=== PATIENT | female | born 1990 | race Caucasian/White ===

== ENCOUNTER 2017-01-15 12:35 | Emergency (ER) | payer OTHER ==
[~2017-01-15] VITALS: Ht 162.6 cm; Wt 74.8 kg
[~2017-01-15 12:35] MED LIST: PROAIR HFA8.5 GM INH
[2017-01-15 14:02] LABS: ABSOLUTE BASOPHIL COUNT 0.1 /CUMM (0.0-0.2); ABSOLUTE EOSINOPHIL COUNT 0 /CUMM (0.0-0.7); ABSOLUTE LYMPH COUNT 2.1 /CUMM (1.2-3.4); ABSOLUTE MONOCYTE COUNT 0.6 /CUMM (0.10-0.60); BASOPHIL % 0.8 % (0.0-2.0); EOSINOPHIL % 0.4 % (0-5); GRANULOCYTE % 73.9 % (42.2-75.2); HEMATOCRIT 38.7 % (37-47); MEAN CORPUSCULAR HGB CONC 34.8 G/DL (33.0-37.0); MEAN CORPUSCULAR VOLUME 89.2 FL (81.0-99.0); MEAN PLATELET VOLUME 9.9 FL (7.4-10.4); PLATELET COUNT 186 /CUMM (130-400); RBC DISTRIBUTION WIDTH 12.8 % (11.5-14.5); RED BLOOD CELL CT 4.34 /CUMM (4.20-5.40); WHITE BLOOD CELL COUNT 10.9 /CUMM (4.8-10.8)
--- NOTE | 2017-01-15 14:41 | ED EAR COMPLAINT ---
History of Present Illness General Chief Complaint: Ear Complaints Stated Complaint: RIGHT EAR PAIN Source: patient Exam Limitations: no limitations Vital Signs & Intake/Output Vital Signs & Intake/Output Vital Signs Date Time Temp Pulse Resp B/P B/P Pulse O2 O2 Flow FiO2 Mean Ox Delivery Rate 01/15 1621 63 18 148/85 98 Room Air 01/15 1335 99 Room Air 01/15 1239 98.8 81 16 160/98 99 Room Air Allergies Coded Allergies: NO KNOWN ALLERGIES (10/19/11) Reconcile Medications Albuterol Sulfate (Proair Hfa) 8.5 GM HFA.AER.AD 2 PUF INH Q4-6 PRN PRN DYSPNEA (Reported) Amoxicillin 500 MG TABLET 1 TAB PO TID cellulitis Ciprofloxacin HCl/Dexameth (Ciprodex Otic Suspension) 0.3 %-0.1 % DROPS.SUSP 4 GTT OT BID otitis media Sulfamethoxazole/Trimethoprim (Bactrim Ds Tablet) 800 MG-160 MG TABLET 1 TAB PO BID cellulitis Triage Note: 26 Y/O FEMALE SENT BY [facility] FOR EVAL OF R EAR PAIN/SWELLING. 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 PMD WORRIED ABOUT MASTOIDITIS. R EAR RED AND SWOLLEN, WARM TO TOUCH Triage Nurses Notes Reviewed? yes Onset: Abrupt Duration: day(s):, constant, getting worse Timing: recent history Injury Environment: home Severity: moderate, severe No Modifying Factors: none : No Patient currently breastfeeds: No HPI: 26-year-old female comes into emergency room with complaints of right ear pain and swelling. Symptoms of a going on for the past few days. Getting progressively worse. Denies any vomiting. Sharp pain. denies any trauma. Past History Travel History Traveled to [place] past 21 day No Medical History Any Pertinent Medical History? 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 No Review of Systems Review of Systems Constitutional: Reports: no symptoms. EENTM: Reports: see HPI. Respiratory: Reports: no symptoms. Cardiovascular: Reports: no symptoms. GI: Reports: no symptoms. Genitourinary: Reports: no symptoms. Musculoskeletal: Reports: no symptoms. Skin: Reports: no symptoms. Neurological/Psychological: Reports: no symptoms. Hematologic/Endocrine: Reports: no symptoms. Immunologic/Allergic: Reports: no symptoms. All Other Systems: Reviewed and Negative Physical Exam Physical Exam General Appearance: well developed/nourished, mild distress Head: atraumatic Eyes: Bilateral: normal appearance. Ears: Right: other (erythema, warmth, swelling). Nose: normal inspection Mouth/Throat: normal mouth inspection, pharynx normal Neck: normal inspection Cardiovascular/Respiratory: no respiratory distress Back: normal inspection Neurologic/Psych: awake, alert, oriented x 3, normal mood/affect Skin: intact, normal color, warm/dry Progress Differential Diagnoses I considered the following diagnoses in my evaluation of the patient: Cellulitis, mastoiditis, otitis media, otitis externa, Plan of Care: Orders Procedure Date/time Status URINE 01/15 1318 Complete CBC WITHOUT DIFFERENTIAL 01/16 1316 Complete BASIC METABOLIC PANEL 01/16 1316 Complete Laboratory Tests 01/15/17 1440: Urine Test NEGATIVE 01/15/17 1344: Anion Gap 11, Estimated GFR > 60, BUN/Creatinine Ratio 15.7, Glucose 87, Calcium 9.0, CBC w Diff NO MAN DIFF REQ, RBC 4.34, MCV 89.2, MCH 31.0, RDW 12.8, MPV 9.9 , Gran % 73.9, Lymphocytes % 19.8 L, Monocytes % 5.1, Eosinophils % 0.4, Basophils % 0.8, Absolute Granulocytes 8.0 H, Absolute Lymphocytes 2.1, Absolute Monocytes 0.6, Absolute Eosinophils 0, Absolute Basophils 0.1, PUBS MCHC 34.8 Diagnostic Imaging: Viewed by Me: CT Scan. Discussed w/RAD: CT Scan. Radiology Impression: SERVICE DATE: 01/15/17 EXAM TYPE: CAT - CT INT AUD CANALS WO IV CONT EXAMINATION: CT INTERNAL AUDITORY CANALS WITHOUT CONTRAST CLINICAL INFORMATION: Pain and swelling to rule out mastoiditis. COMPARISON: None available. TECHNIQUE: Contiguous axial imaging was performed without intravenous administration of contrast. FINDINGS: There is soft tissue thickening involving the cartilaginous right EAC and the right auricle suggesting right-sided otitis externa with probable adjacent cellulitis. Possible partially imaged enlarged lymph nodes just beneath the right mastoid tip and within the right parotid gland. The mastoid air cells and middle ear cavities are clear bilaterally. The inner ear structures including the cochlea, vestibules, and semicircular canals are normal. The semicircular canals remain will cover with bone. Fascicular chains are intact bilaterally. There is no otospongiosis. Facial nerves describe a normal course bilaterally. The petrous apices are pneumatized and remain well aerated bilaterally. The oval window and round window niches remain well-aerated. The vestibular aqueducts are not enlarged. The internal carotid arteries remain well covered with bone and the sigmoid plates are intact. There is mild mucosal thickening along the floors of the right and left maxillary sinus. Partially imaged significant periapical disease involving the left maxillary premolars, the right first maxillary molar, and the left first and second maxillary molars. Thin bone covers the left maxillary sinus floor at the level of periapical disease without definite dehiscence. There is leftward deviation of the nasal septum with a leftward directed septal spur. Adenoid hypertrophy results in nasopharyngeal narrowing. IMPRESSION: - There is soft tissue thickening involving the cartilaginous right EAC and the right auricle suggesting right-sided otitis externa with probable adjacent cellulitis. Possible partially imaged enlarged lymph nodes just beneath the right mastoid tip and within the right parotid gland. Following conservative treatment, a neck CT with contrast would be recommended to ensure resolution of these findings. - The mastoid air cells and middle ear cavities are clear. - Partially imaged significant periapical disease involving the left maxillary premolars, the right first maxillary molar, and the left first and second maxillary molars. Thin bone covers the left maxillary sinus floor at the level of periapical disease without definite dehiscence. DICTATED BY: LYLA CROWE MD DATE/TIME DICTATED:01/15/171601 RIDDLER OPERATOR:ALMA ROSA DATE/TIME TRANSCRIBED:01/15/171601 Initial ED EKG: none Departure Departure Disposition: HOME OR SELF CARE Condition: Stable Clinical Impression Primary Impression: Cellulitis of ear Referrals: TOMAS JIANG MD (PCP/Family) Additional Instructions: Take amoxicillin Bactrim and Ciprodex drops as prescribed. Follow-up with ear nose and throat doctor. Return if any concerns worsening symptoms. Please go over all results of today's visit with your primary care doctor. Contact your primary care doctor to let them know you were here in the emergency room. There may be nonspecific findings which may not be related to your visit today here in the emergency room but may require further evaluation and chronic monitoring by your primary care doctor. If you had a laceration today the chance of foreign body always remains. You should follow-up with your primary care doctor for recheck in 3-5 days for a wound check. If you had an x-ray done there is a chance that a fracture could have been missed on initial read and you should follow-up with your primary care doctor for repeat x-rays if symptoms persist. If your blood pressure was elevated here in the emergency room please have rechecked by her primary care doctor within the next 48 hours by your primary care doctor. If you were prescribed a narcotic here in the emergency room or any type of controlled substances you're not allowed to drive while taking this medication or operate any type of heavy machinery. Narcotics can make you feel lightheaded dizziness nausea and can cause constipation. You may need to pick and shovel worker a stool softener. Thank you for choosing [facility] emergency room. Please return to the emergency room immediately if you have any other concerns worsening of symptoms. Departure Forms: Customer Survey General Discharge Information Prescriptions: Current Visit Scripts Sulfamethoxazole/Trimethoprim (Bactrim Ds Tablet) 1 TAB PO BID #20 TAB Amoxicillin 1 TAB PO TID #30 TAB Ciprofloxacin HCl/Dexameth (Ciprodex Otic Suspension) 4 GTT OT BID #1 BOT Comments 01/15/2017 4:47:37 PM No evidence of mastoiditis. External auditory canal slightly inflamed. Patient be treated with ear drops as well as oral antibiotics for cellulitis of auricle. Patient understands and agrees with plan of care. Follow-up for recheck in 4-5 days with primary care doctor.
[2017-01-15] MEDS ORDERED: CIPRODEX OTIC7.5 ML OT (16:08)
[2017-01-15] MEDS ORDERED: BACTRIM DS TAB1 EACH PO (16:08)
[2017-01-15] MEDS ORDERED: AMOXICILLIN500 M3 PO (16:08)
--- NOTE | 2017-01-15 16:18 | CT SCAN REPORT ---
EXAMINATION: CT INTERNAL AUDITORY CANALS WITHOUT CONTRAST CLINICAL INFORMATION: Pain and swelling to rule out mastoiditis. COMPARISON: None available. TECHNIQUE: Contiguous axial imaging was performed without intravenous administration of contrast. FINDINGS: There is soft tissue thickening involving the cartilaginous right EAC and the right auricle suggesting right-sided otitis externa with probable adjacent cellulitis. Possible partially imaged enlarged lymph nodes just beneath the right mastoid tip and within the right parotid gland. The mastoid air cells and middle ear cavities are clear bilaterally. The inner ear structures including the cochlea, vestibules, and semicircular canals are normal. The semicircular canals remain will cover with bone. Fascicular chains are intact bilaterally. There is no otospongiosis. Facial nerves describe a normal course bilaterally. The petrous apices are pneumatized and remain well aerated bilaterally. The oval window and round window niches remain well-aerated. The vestibular aqueducts are not enlarged. The internal carotid arteries remain well covered with bone and the sigmoid plates are intact. There is mild mucosal thickening along the floors of the right and left maxillary sinus. Partially imaged significant periapical disease involving the left maxillary premolars, the right first maxillary molar, and the left first and second maxillary molars. Thin bone covers the left maxillary sinus floor at the level of periapical disease without definite dehiscence. There is leftward deviation of the nasal septum with a leftward directed septal spur. Adenoid hypertrophy results in nasopharyngeal narrowing. IMPRESSION: - There is soft tissue thickening involving the cartilaginous right EAC and the right auricle suggesting right-sided otitis externa with probable adjacent cellulitis. Possible partially imaged enlarged lymph nodes just beneath the right mastoid tip and within the right parotid gland. Following conservative treatment, a neck CT with contrast would be recommended to ensure resolution of these findings. - The mastoid air cells and middle ear cavities are clear. - Partially imaged significant periapical disease involving the left maxillary premolars, the right first maxillary molar, and the left first and second maxillary molars. Thin bone covers the left maxillary sinus floor at the level of periapical disease without definite dehiscence.
[2017-01-15 16:21] VITALS: BP 148/85
== END 2017-01-15 16:37 ==
LOC: ERH 12:35
PROVIDERS: Physician Assistant Medical
DX: H60.11 Cellulitis of right external ear (principal)
CPT/HCPCS: 81025